=== PATIENT | female | born 1990 | race Hispanic/Latino ===

== ENCOUNTER 2022-12-05 12:05 | Inpatient (IN) | payer SELFPAY ==
[~2022-12-05 12:05] MED LIST: Heparin 10,000 UNITS/ 10 ML VIAL ONE
[2022-12-05 12:56] LABS: #Eosinphils 0.1 thou/uL (0.0-0.7); #Monocytes 0.5 thou/uL (0.11-0.59); #Neutrophils 6.5 thou/uL (1.40-6.50); %Basophils 0.4 % (0.0-1.0); %Eosinophils 1.5 % (0.0-10.0); %Lymphocytes 5.6 % (21.0-51.0); %Neutrophils 86.1 % (42.0-75.0); Hemoglobin 9.2 g/dL (12.0-16.0); Mean Corpuscular Hemoglobin 30.3 pg (27.0-31.0); Mean Corpuscular Volume 86.5 fl (78.0-98.0); Platelet Count 262 10x3/uL (130-400); RBC Distribution Width 14.6 % (11.5-14.5); Red Blood Cell (RBC) Count 3.04 mill/uL (4.20-5.40); White Blood Cell (WBC) Count 7.5 10x3/uL (4.8-10.8)
[2022-12-05 13:11] LABS: BHCG - Serum Negative (NEGATIVE); Pregs Control Background? CLEAR/WHITE (CLR/WHITE); Pregs Control Bar Appear? YES (CONTROL BAR)
[2022-12-05 13:23] LABS: ALT (SGPT) 10 U/L (8-55); AST (SGOT) 8 U/L (5-34); Albumin 4.4 g/dL (3.5-5.0); Alkaline Phosphatase 71 U/L (40-110); Anion Gap 45 mmol/L (10-20); Bilirubin, Total 0.6 mg/dL (0.2-1.2); Calcium 7.3 mg/dL (7.8-10.44); Carbon Dioxide 21 mmol/L (22-29); Chloride 74 mmol/L (98-107); Globulin 3.7 g/dL (2.4-3.5); Glucose 118 mg/dL (70-105); Potassium 4.4 mmol/L (3.5-5.1); Protein, Total 8.1 g/dL (6.0-8.3); Sodium 136 mmol/L (136-145)
[2022-12-05 13:34] LABS: BUN (Urea Nitrogen) 176 mg/dL (7.0-18.7)
[2022-12-05] MEDS ORDERED: Promethazine HCl 12.5 MG in Sodium Chloride 0.9% 50 ML IVPB SCH (13:45)
[2022-12-05 14:34] LABS: Free T4 (Free Thyroxine) 0.91 ng/dL (0.70-1.48)
[2022-12-05 14:55] LABS: Calc. Creatinine Clearance 0 mL/min (70-130)
[2022-12-05] MEDS ORDERED: Calcium Carbonate 500 MG ChewTAB PO PRN (15:59)
[2022-12-05] MEDS ORDERED: HYDROcodone/Acetaminophen 5/325 mg Tablet PO PRN (15:59)
[2022-12-05 17:47] LABS: HBSAB Concentration Less than 8.00 mIU/mL; HBSAg Index 0.18 S/CO (0-0.99); Hep B Core Total Ab Non-Reactive (NonReactive); Hep B Surf AB Non-Reactive (NonReactive); Hep B Surf Ag Non-Reactive S/CO (NonReactive); Hep C IgG Ab Non-Reactive S/CO (NonReactive); Hep C Index 0.12 S/CO (0-0.79)
[2022-12-05] MEDS: Ondansetron PF 4 MG/2 ML Vial IVP PRN (23:15)
[2022-12-05 23:39] VITALS: BMI 28.4
[2022-12-06 05:33] LABS: #Basophils 0.1 thou/uL (0.0-0.2); #Monocytes 0.6 thou/uL (0.11-0.59); #Neutrophils 6.6 thou/uL (1.40-6.50); %Basophils 0.5 % (0.0-1.0); %Eosinophils 10.5 % (0.0-10.0); %Lymphocytes 10.5 % (21.0-51.0); %Monocytes 6.4 % (0.0-10.0); %Neutrophils 71.9 % (42.0-75.0); Mean Corpuscular HGB CONC 33.6 g/dL (32.0-36.0); Mean Corpuscular Hemoglobin 29.7 pg (27.0-31.0); Mean Corpuscular Volume 88.4 fl (78.0-98.0); Mean Platelet Volume 11.4 fL (7.4-10.4); Platelet Count 238 10x3/uL (130-400); RBC Distribution Width 14.8 % (11.5-14.5); Red Blood Cell (RBC) Count 3.03 mill/uL (4.20-5.40); White Blood Cell (WBC) Count 9.2 10x3/uL (4.8-10.8)
[2022-12-06 06:06] LABS: ALT (SGPT) 10 U/L (8-55); AST (SGOT) 11 U/L (5-34); Albumin 4.3 g/dL (3.5-5.0); Alkaline Phosphatase 67 U/L (40-110); Anion Gap 35 mmol/L (10-20); BUN (Urea Nitrogen) 113 mg/dL (7.0-18.7); Bilirubin, Total 0.6 mg/dL (0.2-1.2); Calc. Creatinine Clearance 4 mL/min (70-130); Calcium 8.6 mg/dL (7.8-10.44); Carbon Dioxide 16 mmol/L (22-29); Chloride 89 mmol/L (98-107); Globulin 3.5 g/dL (2.4-3.5); Glucose 74 mg/dL (70-105); Potassium 3.4 mmol/L (3.5-5.1); Protein, Total 7.8 g/dL (6.0-8.3); Sodium 137 mmol/L (136-145)
[2022-12-06] MEDS: Sodium Bicarbonate Tab 325 MG TAB PO SCH ×3 (08:37→21:33)
[2022-12-06] MEDS: Lactated Ringer's 1,000 ML IV SCH ×2 (08:37→16:48)
[2022-12-06] MEDS: Ondansetron PF 4 MG/2 ML Vial IVP PRN (08:38)
[2022-12-06] MEDS ORDERED: NIFEdipine XL 60 MG TAB PO SCH (09:00)
[2022-12-06] MEDS ORDERED: Labetalol HCl 100 MG TAB PO SCH (09:00)
[2022-12-06] MEDS ORDERED: Heparin 10,000 UNITS/ 10 ML VIAL ONE (09:03)
[2022-12-06] MEDS ORDERED: Sodium Chloride 0.9% 1,000 ML IV SCH ×2 (10:45→16:00)
[2022-12-06] MEDS ORDERED: Lice Shampoo 120 ML BOT TOP SCH (13:45)
[2022-12-06] MEDS ORDERED: Sodium Chloride 0.9% 500 ML IVPB SCH (16:00)
[2022-12-07] MEDS ORDERED: Senokot S 8.6-50 MG TAB PO PRN (00:17)
[2022-12-07] MEDS: Lactated Ringer's 1,000 ML IV SCH ×3 (03:04→22:18)
[2022-12-07] MEDS: Ondansetron PF 4 MG/2 ML Vial IVP PRN ×2 (03:05→11:56)
[2022-12-07] MEDS: Sodium Bicarbonate Tab 325 MG TAB PO SCH ×3 (08:59→22:16)
[2022-12-07] MEDS ORDERED: Lice Shampoo 120 ML BOT TOP SCH (09:15)
[2022-12-07] MEDS ORDERED: Heparin 10,000 UNITS/ 10 ML VIAL ONE (11:04)
[2022-12-07] MEDS ORDERED: Carvedilol 6.25 MG TAB PO SCH (13:15)
[2022-12-07 14:25] LABS: Albumin 3.2 g/dL (3.5-5.0); Anion Gap 21 mmol/L (10-20); BUN (Urea Nitrogen) 39 mg/dL (7.0-18.7); Calc. Creatinine Clearance 5 mL/min (70-130); Calcium 8.2 mg/dL (7.8-10.44); Carbon Dioxide 21 mmol/L (22-29); Chloride 98 mmol/L (98-107); Estimated GFR 3; Glucose 86 mg/dL (70-105); Phosphorus 5.1 mg/dL (2.3-4.7); Potassium 3.4 mmol/L (3.5-5.1); Sodium 137 mmol/L (136-145)
[2022-12-07] MEDS ORDERED: Potassium Bicarbonate/Cit Ac 20 MEQ TAB PO SCH (16:15)
[2022-12-07] MEDS ORDERED: EPOETIN ALFA-EPBX (ESRD) 10,000 UNITS/ML VIAL SC SCH (17:00)
[2022-12-07] MEDS: Acetaminophen 325 MG TAB PO PRN (22:16)
[2022-12-07] MEDS: hydrALAZINE 20 MG/ML VIAL SLOW IVP PRN (22:17)
[2022-12-08 05:16] LABS: #Eosinphils 1.1 thou/uL (0.0-0.7); #Monocytes 0.7 thou/uL (0.11-0.59); %Basophils 0.3 % (0.0-1.0); %Eosinophils 15.8 % (0.0-10.0); %Lymphocytes 13.9 % (21.0-51.0); %Monocytes 10.7 % (0.0-10.0); %Neutrophils 58.7 % (42.0-75.0); Hemoglobin 7.7 g/dL (12.0-16.0); Mean Corpuscular HGB CONC 32.8 g/dL (32.0-36.0); Mean Corpuscular Hemoglobin 30.2 pg (27.0-31.0); Mean Corpuscular Volume 92.2 fl (78.0-98.0); Mean Platelet Volume 11.5 fL (7.4-10.4); Platelet Count 160 10x3/uL (130-400); RBC Distribution Width 14.6 % (11.5-14.5); Red Blood Cell (RBC) Count 2.55 mill/uL (4.20-5.40); White Blood Cell (WBC) Count 6.8 10x3/uL (4.8-10.8)
[2022-12-08 05:41] LABS: Iron 25 ug/dL (50-170); Iron Binding Capacity, Total 123 mcg/dL (265-497)
[2022-12-08 05:44] LABS: Albumin 3.1 g/dL (3.5-5.0); Anion Gap 17 mmol/L (10-20); BUN (Urea Nitrogen) 13 mg/dL (7.0-18.7); BUN/Creatinine Ratio 1.54; Calc. Creatinine Clearance 11 mL/min (70-130); Calcium 8.5 mg/dL (7.8-10.44); Carbon Dioxide 25 mmol/L (22-29); Chloride 101 mmol/L (98-107); Estimated GFR 6; Glucose 78 mg/dL (70-105); Phosphorus 2.9 mg/dL (2.3-4.7); Potassium 3.8 mmol/L (3.5-5.1); Sodium 139 mmol/L (136-145)
[2022-12-08] MEDS: Calcitriol 0.25 MCG CAP PO SCH (09:17)
[2022-12-08] MEDS: Sodium Bicarbonate Tab 325 MG TAB PO SCH ×3 (09:17→21:43)
[2022-12-08] MEDS: hydrALAZINE 20 MG/ML VIAL SLOW IVP PRN ×2 (09:32→21:42)
[2022-12-08] MEDS: Iron, Sodium Ferric Gluconate 250 MG in Sodium Chloride 0.9% 250 ML 250 ML IVPB SCH (13:29)
[2022-12-08] MEDS: Acetaminophen 325 MG TAB PO PRN (21:42)
[2022-12-09 05:52] LABS: Anion Gap 16 mmol/L (10-20); BUN (Urea Nitrogen) 19 mg/dL (7.0-18.7); BUN/Creatinine Ratio 1.75; Calc. Creatinine Clearance 9 mL/min (70-130); Calcium 7.9 mg/dL (7.8-10.44); Carbon Dioxide 25 mmol/L (22-29); Chloride 101 mmol/L (98-107); Estimated GFR 4; Glucose 82 mg/dL (70-105); Phosphorus 2.8 mg/dL (2.3-4.7); Potassium 3.6 mmol/L (3.5-5.1); Sodium 138 mmol/L (136-145)
[2022-12-09] MEDS: hydrALAZINE 20 MG/ML VIAL SLOW IVP PRN (06:41)
[2022-12-09] MEDS ORDERED: Bupivacaine HCl 0.5%/Epinephrine 1:200,000/PF 30 ml Vial ONE (06:58)
[2022-12-09] MEDS ORDERED: Lidocaine 2% PF 5 ML VIAL ONE (06:58)
[2022-12-09] MEDS ORDERED: Fentanyl 250 MCG/5 ML VIAL ONE (08:50)
[2022-12-09] MEDS ORDERED: Midazolam HCl 2 mg/2 ml Vial ONE (08:51)
[2022-12-09] MEDS ORDERED: SUGAMMADEX SODIUM 200 MG/2 ML VIAL ONE (08:51)
[2022-12-09] MEDS ORDERED: PROPOFOL 200 MG/20 ML VIAL ONE (08:57)
[2022-12-09] MEDS ORDERED: Ondansetron PF 4 MG/2 ML Vial ONE (08:57)
[2022-12-09] MEDS ORDERED: Dexamethasone 20 MG/5 ML VIAL ONE (08:57)
[2022-12-09] MEDS ORDERED: Rocuronium Bromide 10 MG/ML (10ML VIAL) ONE (08:57)
[2022-12-09] MEDS ORDERED: Promethazine HCl 25 MG/ML VIAL IM PRN (10:36)
[2022-12-09] MEDS ORDERED: Ondansetron HCl/PF 4 MG/2 ML Vial IVP PRN (10:36)
[2022-12-09] MEDS ORDERED: Heparin 10,000 UNITS/ 10 ML VIAL ONE (11:41)
[2022-12-09] MEDS: Sodium Bicarbonate Tab 325 MG TAB PO SCH ×2 (11:52→14:13)
[2022-12-09] MEDS: Calcitriol 0.25 MCG CAP PO SCH (12:00)
[2022-12-09] MEDS: Amlodipine 10 MG TAB PO SCH (12:01)
[2022-12-09] MEDS: Ondansetron PF 4 MG/2 ML Vial IVP PRN (12:04)
[2022-12-09] MEDS ORDERED: Morphine 4 MG/ML VIAL SLOW IVP SCH (12:45)
[2022-12-09] MEDS: Iron, Sodium Ferric Gluconate 250 MG in Sodium Chloride 0.9% 250 ML 250 ML IVPB SCH (14:25)
[2022-12-09 17:35] LABS: Albumin 3.3 g/dL (3.5-5.0); Anion Gap 18 mmol/L (10-20); BUN (Urea Nitrogen) 23 mg/dL (7.0-18.7); BUN/Creatinine Ratio 1.93; Calc. Creatinine Clearance 8 mL/min (70-130); Calcium 7.7 mg/dL (7.8-10.44); Carbon Dioxide 24 mmol/L (22-29); Chloride 99 mmol/L (98-107); Estimated GFR 4; Glucose 109 mg/dL (70-105); Phosphorus 3.6 mg/dL (2.3-4.7); Potassium 4.4 mmol/L (3.5-5.1); Sodium 137 mmol/L (136-145)
[2022-12-10] MEDS: Sodium Bicarbonate Tab 325 MG TAB PO SCH ×4 (00:06→21:47)
[2022-12-10] MEDS: hydrALAZINE 20 MG/ML VIAL SLOW IVP PRN (00:08)
[2022-12-10] MEDS: Amlodipine 10 MG TAB PO SCH (08:40)
[2022-12-10] MEDS: Calcitriol 0.25 MCG CAP PO SCH (08:40)
[2022-12-10] MEDS: Acetaminophen 325 MG TAB PO PRN (08:44)
[2022-12-10 09:09] LABS: #Eosinphils 0.5 thou/uL (0.0-0.7); #Monocytes 0.9 thou/uL (0.11-0.59); #Neutrophils 6.5 thou/uL (1.40-6.50); %Basophils 0.3 % (0.0-1.0); %Eosinophils 5.5 % (0.0-10.0); %Lymphocytes 13.9 % (21.0-51.0); %Monocytes 9.4 % (0.0-10.0); %Neutrophils 70.5 % (42.0-75.0); Hemoglobin 7.4 g/dL (12.0-16.0); Mean Corpuscular HGB CONC 31.5 g/dL (32.0-36.0); Mean Corpuscular Hemoglobin 30.3 pg (27.0-31.0); Mean Corpuscular Volume 96.3 fl (78.0-98.0); Mean Platelet Volume 11.5 fL (7.4-10.4); Platelet Count 190 10x3/uL (130-400); RBC Distribution Width 14.6 % (11.5-14.5); Red Blood Cell (RBC) Count 2.44 mill/uL (4.20-5.40); White Blood Cell (WBC) Count 9.2 10x3/uL (4.8-10.8)
[2022-12-10 11:06] LABS: Anion Gap 17 mmol/L (10-20); BUN (Urea Nitrogen) 9 mg/dL (7.0-18.7); BUN/Creatinine Ratio 1.48; Calc. Creatinine Clearance 15 mL/min (70-130); Calcium 7.7 mg/dL (7.8-10.44); Carbon Dioxide 25 mmol/L (22-29); Chloride 101 mmol/L (98-107); Estimated GFR 9; Glucose 70 mg/dL (70-105); Phosphorus 1.8 mg/dL (2.3-4.7); Potassium 3.8 mmol/L (3.5-5.1); Sodium 139 mmol/L (136-145)
[2022-12-10] MEDS: Iron, Sodium Ferric Gluconate 250 MG in Sodium Chloride 0.9% 250 ML 250 ML IVPB SCH (14:26)
[2022-12-11 08:02] LABS: #Eosinphils 1.2 thou/uL (0.0-0.7); #Monocytes 0.4 thou/uL (0.11-0.59); #Neutrophils 5.6 thou/uL (1.40-6.50); %Basophils 0.2 % (0.0-1.0); %Eosinophils 14.7 % (0.0-10.0); %Lymphocytes 11.6 % (21.0-51.0); %Monocytes 4.4 % (0.0-10.0); %Neutrophils 68.5 % (42.0-75.0); Hemoglobin 7.6 g/dL (12.0-16.0); Mean Corpuscular HGB CONC 32.1 g/dL (32.0-36.0); Mean Corpuscular Hemoglobin 30.4 pg (27.0-31.0); Mean Corpuscular Volume 94.8 fl (78.0-98.0); Platelet Count 193 10x3/uL (130-400); RBC Distribution Width 14.7 % (11.5-14.5); White Blood Cell (WBC) Count 8.2 10x3/uL (4.8-10.8)
[2022-12-11] MEDS: Amlodipine 10 MG TAB PO SCH (08:13)
[2022-12-11] MEDS: Sodium Bicarbonate Tab 325 MG TAB PO SCH ×3 (08:13→21:07)
[2022-12-11] MEDS: Calcitriol 0.25 MCG CAP PO SCH (08:13)
[2022-12-11 08:26] LABS: Anion Gap 14 mmol/L (10-20); BUN (Urea Nitrogen) 16 mg/dL (7.0-18.7); Calc. Creatinine Clearance 11 mL/min (70-130); Calcium 7.4 mg/dL (7.8-10.44); Carbon Dioxide 26 mmol/L (22-29); Chloride 101 mmol/L (98-107); Estimated GFR 6; Glucose 75 mg/dL (70-105); Potassium 3.8 mmol/L (3.5-5.1); Sodium 137 mmol/L (136-145)
[2022-12-11] MEDS: Iron, Sodium Ferric Gluconate 250 MG in Sodium Chloride 0.9% 250 ML 250 ML IVPB SCH (14:21)
[2022-12-11] MEDS: Acetaminophen 325 MG TAB PO PRN (21:07)
[2022-12-12 06:42] LABS: #Eosinphils 0.3 thou/uL (0.0-0.7); #Monocytes 0.5 thou/uL (0.11-0.59); #Neutrophils 5.8 thou/uL (1.40-6.50); %Basophils 0.1 % (0.0-1.0); %Eosinophils 4.2 % (0.0-10.0); %Lymphocytes 7.5 % (21.0-51.0); %Monocytes 7.1 % (0.0-10.0); %Neutrophils 80.5 % (42.0-75.0); Hemoglobin 6.8 g/dL (12.0-16.0); Mean Corpuscular HGB CONC 31.9 g/dL (32.0-36.0); Mean Corpuscular Hemoglobin 30.4 pg (27.0-31.0); Mean Corpuscular Volume 95.1 fl (78.0-98.0); Mean Platelet Volume 10.9 fL (7.4-10.4); Platelet Count 185 10x3/uL (130-400); RBC Distribution Width 14.9 % (11.5-14.5); Red Blood Cell (RBC) Count 2.24 mill/uL (4.20-5.40); White Blood Cell (WBC) Count 7.2 10x3/uL (4.8-10.8)
[2022-12-12 07:07] LABS: Albumin 2.8 g/dL (3.5-5.0); Anion Gap 16 mmol/L (10-20); BUN (Urea Nitrogen) 25 mg/dL (7.0-18.7); BUN/Creatinine Ratio 2.29; Calc. Creatinine Clearance 8 mL/min (70-130); Carbon Dioxide 23 mmol/L (22-29); Chloride 99 mmol/L (98-107); Estimated GFR 4; Glucose 84 mg/dL (70-105); Phosphorus 1.9 mg/dL (2.3-4.7); Potassium 3.7 mmol/L (3.5-5.1); Sodium 134 mmol/L (136-145)
[2022-12-12] MEDS ORDERED: Ergocalciferol 1.25 MG(50,000 UNITS) CAP PO SCH (09:00)
[2022-12-12] MEDS ORDERED: EPOETIN ALFA-EPBX (ESRD) 10,000 UNITS/ML VIAL SC SCH (09:00)
[2022-12-12] MEDS ORDERED: Heparin 10,000 UNITS/ 10 ML VIAL ONE (09:04)
[2022-12-12] MEDS: Calcitriol 0.25 MCG CAP PO SCH (09:44)
[2022-12-12] MEDS: Sodium Bicarbonate Tab 325 MG TAB PO SCH ×3 (09:44→19:51)
[2022-12-12] MEDS: NIFEdipine XL 60 MG TAB PO SCH (09:44)
[2022-12-13] MEDS: Calcitriol 0.25 MCG CAP PO SCH (07:42)
[2022-12-13] MEDS: NIFEdipine XL 60 MG TAB PO SCH (07:42)
[2022-12-13] MEDS: Sodium Bicarbonate Tab 325 MG TAB PO SCH ×3 (07:42→20:53)
[2022-12-13] MEDS ORDERED: Magnevist 469MG/ML 20 ML VIAL ONE (08:54)
[2022-12-13 09:06] LABS: #Eosinphils 0.5 thou/uL (0.0-0.7); #Monocytes 0.6 thou/uL (0.11-0.59); #Neutrophils 4.3 thou/uL (1.40-6.50); %Basophils 0.3 % (0.0-1.0); %Eosinophils 8.1 % (0.0-10.0); %Lymphocytes 17.1 % (21.0-51.0); %Monocytes 9.6 % (0.0-10.0); %Neutrophils 64.6 % (42.0-75.0); Hemoglobin 8.1 g/dL (12.0-16.0); Mean Corpuscular Hemoglobin 30.3 pg (27.0-31.0); Mean Corpuscular Volume 94.8 fl (78.0-98.0); Mean Platelet Volume 9.6 fL (7.4-10.4); Platelet Count 184 10x3/uL (130-400); RBC Distribution Width 15.1 % (11.5-14.5); Red Blood Cell (RBC) Count 2.67 mill/uL (4.20-5.40); White Blood Cell (WBC) Count 6.7 10x3/uL (4.8-10.8)
[2022-12-13] MEDS ORDERED: Heparin 10,000 UNITS/ 10 ML VIAL ONE (09:08)
[2022-12-13 09:34] LABS: Albumin 3.3 g/dL (3.5-5.0); Anion Gap 15 mmol/L (10-20); BUN (Urea Nitrogen) 16 mg/dL (7.0-18.7); BUN/Creatinine Ratio 2.27; Calc. Creatinine Clearance 13 mL/min (70-130); Calcium 8.7 mg/dL (7.8-10.44); Carbon Dioxide 26 mmol/L (22-29); Chloride 98 mmol/L (98-107); Estimated GFR 7; Glucose 90 mg/dL (70-105); Phosphorus 2.5 mg/dL (2.3-4.7); Potassium 3.6 mmol/L (3.5-5.1); Sodium 135 mmol/L (136-145)
[2022-12-13] MEDS ORDERED: Losartan 25 MG TAB PO SCH (10:45)
[2022-12-14 06:32] LABS: #Eosinphils 0.6 thou/uL (0.0-0.7); #Monocytes 0.8 thou/uL (0.11-0.59); #Neutrophils 4.6 thou/uL (1.40-6.50); %Basophils 0.1 % (0.0-1.0); %Eosinophils 7.9 % (0.0-10.0); %Monocytes 11.6 % (0.0-10.0); %Neutrophils 63.1 % (42.0-75.0); Hemoglobin 6.8 g/dL (12.0-16.0); Mean Corpuscular HGB CONC 31.9 g/dL (32.0-36.0); Mean Corpuscular Hemoglobin 30.5 pg (27.0-31.0); Mean Corpuscular Volume 95.5 fl (78.0-98.0); Mean Platelet Volume 10.1 fL (7.4-10.4); Platelet Count 157 10x3/uL (130-400); RBC Distribution Width 15.2 % (11.5-14.5); Red Blood Cell (RBC) Count 2.23 mill/uL (4.20-5.40); White Blood Cell (WBC) Count 7.2 10x3/uL (4.8-10.8)
[2022-12-14 07:39] LABS: Hemoglobin 6.9 g/dL (12.0-16.0)
[2022-12-14] MEDS ORDERED: Heparin 10,000 UNITS/ 10 ML VIAL ONE (08:21)
[2022-12-14] MEDS: Calcitriol 0.25 MCG CAP PO SCH (08:29)
[2022-12-14] MEDS: NIFEdipine XL 60 MG TAB PO SCH (08:29)
[2022-12-14] MEDS: Sodium Bicarbonate Tab 325 MG TAB PO SCH ×2 (08:29→14:28)
[2022-12-14 08:45] LABS: Anion Gap 12 mmol/L (10-20); BUN (Urea Nitrogen) 15 mg/dL (7.0-18.7); Calc. Creatinine Clearance 17 mL/min (70-130); Calcium 8.2 mg/dL (7.8-10.44); Carbon Dioxide 27 mmol/L (22-29); Chloride 100 mmol/L (98-107); Estimated GFR 10; Glucose 77 mg/dL (70-105); Phosphorus 1.6 mg/dL (2.3-4.7); Potassium 3.8 mmol/L (3.5-5.1); Sodium 135 mmol/L (136-145)
[2022-12-14] MEDS ORDERED: Iron, Sodium Ferric Gluconate 250 MG in Sodium Chloride 0.9% 250 ML 250 ML IVPB SCH (16:00)
[2022-12-14] MEDS: hydrALAZINE 20 MG/ML VIAL SLOW IVP PRN (16:46)
[2022-12-15] MEDS: Acetaminophen 325 MG TAB PO PRN ×2 (01:10→08:58)
[2022-12-15] MEDS: hydrALAZINE 20 MG/ML VIAL SLOW IVP PRN (01:13)
[2022-12-15 06:28] LABS: #Eosinphils 0.5 thou/uL (0.0-0.7); #Neutrophils 4.3 thou/uL (1.40-6.50); %Basophils 0.1 % (0.0-1.0); %Eosinophils 7.7 % (0.0-10.0); %Lymphocytes 17.2 % (21.0-51.0); %Monocytes 13.8 % (0.0-10.0); %Neutrophils 60.6 % (42.0-75.0); Hemoglobin 8.6 g/dL (12.0-16.0); Mean Corpuscular Volume 90.9 fl (78.0-98.0); Mean Platelet Volume 9.8 fL (7.4-10.4); Platelet Count 127 10x3/uL (130-400); Red Blood Cell (RBC) Count 2.87 mill/uL (4.20-5.40)
[2022-12-15] MEDS: NIFEdipine XL 60 MG TAB PO SCH (08:58)
[2022-12-15] MEDS: Calcitriol 0.25 MCG CAP PO SCH (08:58)
[2022-12-15] MEDS: hydrALAZINE 25 MG TAB PO SCH ×2 (14:36→20:23)
[2022-12-16 06:39] LABS: #Eosinphils 0.6 thou/uL (0.0-0.7); #Monocytes 0.8 thou/uL (0.11-0.59); #Neutrophils 4.7 thou/uL (1.40-6.50); %Basophils 0.3 % (0.0-1.0); %Eosinophils 8.2 % (0.0-10.0); %Lymphocytes 18.6 % (21.0-51.0); %Neutrophils 62.5 % (42.0-75.0); Hemoglobin 8.9 g/dL (12.0-16.0); Mean Corpuscular HGB CONC 32.5 g/dL (32.0-36.0); Mean Corpuscular Volume 92.3 fl (78.0-98.0); Mean Platelet Volume 9.3 fL (7.4-10.4); Platelet Count 124 10x3/uL (130-400); RBC Distribution Width 16.2 % (11.5-14.5); Red Blood Cell (RBC) Count 2.97 mill/uL (4.20-5.40); White Blood Cell (WBC) Count 7.6 10x3/uL (4.8-10.8)
[2022-12-16] MEDS ORDERED: Heparin 10,000 UNITS/ 10 ML VIAL ONE (10:54)
[2022-12-16] MEDS: Calcitriol 0.25 MCG CAP PO SCH (11:10)
[2022-12-16] MEDS: Metoprolol Tartrate 100 MG TAB PO SCH ×2 (11:10→21:25)
[2022-12-16] MEDS: NIFEdipine XL 60 MG TAB PO SCH ×2 (11:10→21:25)
[2022-12-17 07:33] LABS: #Eosinphils 0.7 thou/uL (0.0-0.7); #Monocytes 0.6 thou/uL (0.11-0.59); #Neutrophils 4.4 thou/uL (1.40-6.50); %Basophils 0.6 % (0.0-1.0); %Eosinophils 9.9 % (0.0-10.0); %Monocytes 8.2 % (0.0-10.0); Hemoglobin 8.8 g/dL (12.0-16.0); Mean Corpuscular HGB CONC 32.4 g/dL (32.0-36.0); Mean Corpuscular Hemoglobin 29.5 pg (27.0-31.0); Mean Corpuscular Volume 91.3 fl (78.0-98.0); Mean Platelet Volume 9.5 fL (7.4-10.4); RBC Distribution Width 15.9 % (11.5-14.5); Red Blood Cell (RBC) Count 2.98 mill/uL (4.20-5.40); White Blood Cell (WBC) Count 7.1 10x3/uL (4.8-10.8)
[2022-12-17 07:40] LABS: Platelet Count 116 10x3/uL (130-400)
[2022-12-17] MEDS: NIFEdipine XL 60 MG TAB PO SCH ×2 (09:21→20:20)
[2022-12-17] MEDS: Calcitriol 0.25 MCG CAP PO SCH (09:21)
[2022-12-17] MEDS: Metoprolol Tartrate 100 MG TAB PO SCH ×2 (09:21→20:20)
[2022-12-18 07:37] VITALS: TEMP 98.3
[2022-12-18 07:59] LABS: #Monocytes 0.5 thou/uL (0.11-0.59); #Neutrophils 4.8 thou/uL (1.40-6.50); %Basophils 0.4 % (0.0-1.0); %Eosinophils 12.5 % (0.0-10.0); %Lymphocytes 17.8 % (21.0-51.0); %Monocytes 6.7 % (0.0-10.0); %Neutrophils 62.3 % (42.0-75.0); Hemoglobin 9.2 g/dL (12.0-16.0); Mean Corpuscular HGB CONC 32.1 g/dL (32.0-36.0); Mean Corpuscular Hemoglobin 29.9 pg (27.0-31.0); Mean Corpuscular Volume 93.2 fl (78.0-98.0); Mean Platelet Volume 9.1 fL (7.4-10.4); Platelet Count 130 10x3/uL (130-400); RBC Distribution Width 15.7 % (11.5-14.5); Red Blood Cell (RBC) Count 3.08 mill/uL (4.20-5.40); White Blood Cell (WBC) Count 7.6 10x3/uL (4.8-10.8)
[2022-12-18 08:19] LABS: Albumin 3.3 g/dL (3.5-5.0); Anion Gap 15 mmol/L (10-20); BUN (Urea Nitrogen) 23 mg/dL (7.0-18.7); BUN/Creatinine Ratio 2.96; Calc. Creatinine Clearance 12 mL/min (70-130); Calcium 8.4 mg/dL (7.8-10.44); Carbon Dioxide 25 mmol/L (22-29); Chloride 100 mmol/L (98-107); Estimated GFR 7; Glucose 89 mg/dL (70-105); Potassium 3.8 mmol/L (3.5-5.1); Sodium 136 mmol/L (136-145)
[2022-12-18] MEDS: Metoprolol Tartrate 100 MG TAB PO SCH ×2 (09:02→21:35)
[2022-12-18] MEDS: NIFEdipine XL 60 MG TAB PO SCH ×2 (09:02→21:35)
[2022-12-18] MEDS: Calcitriol 0.25 MCG CAP PO SCH (09:02)
[2022-12-18 21:41] VITALS: BP 135/88
== END 2022-12-18 21:24 | disposition home or self-care (01) | DRG 699 ==
LOC: ERS 12:05 → NEURO 15:59 → T4-B 12-09 23:24
PROVIDERS: ADMIT Family Medicine; ATTEND Family Medicine
PROC: 06HY33Z Insertion of Infusion Device into Lower Vein, Percutaneous Approach (ICD-10-PCS; principal; 2022-12-05)
PROC: 5A1D70Z Performance of Urinary Filtration, Intermittent, Less than 6 Hours Per Day (ICD-10-PCS; 2022-12-05)
PROC: 5A1D70Z Performance of Urinary Filtration, Intermittent, Less than 6 Hours Per Day (ICD-10-PCS; 2022-12-06)
PROC: 5A1D70Z Performance of Urinary Filtration, Intermittent, Less than 6 Hours Per Day (ICD-10-PCS; 2022-12-07)
PROC: 0JH63XZ Insertion of Tunneled Vascular Access Device into Chest Subcutaneous Tissue and Fascia, Percutaneous Approach (ICD-10-PCS; 2022-12-09)
PROC: 02HV33Z Insertion of Infusion Device into Superior Vena Cava, Percutaneous Approach (ICD-10-PCS; 2022-12-09)
PROC: B5181ZA Fluoroscopy of Superior Vena Cava using Low Osmolar Contrast, Guidance (ICD-10-PCS; 2022-12-09)
PROC: 5A1D70Z Performance of Urinary Filtration, Intermittent, Less than 6 Hours Per Day (ICD-10-PCS; 2022-12-09)
PROC: 5A1D70Z Performance of Urinary Filtration, Intermittent, Less than 6 Hours Per Day (ICD-10-PCS; 2022-12-12)
PROC: 5A1D70Z Performance of Urinary Filtration, Intermittent, Less than 6 Hours Per Day (ICD-10-PCS; 2022-12-13)
PROC: 30233N1 Transfusion of Nonautologous Red Blood Cells into Peripheral Vein, Percutaneous Approach (ICD-10-PCS; 2022-12-14)
PROC: 5A1D70Z Performance of Urinary Filtration, Intermittent, Less than 6 Hours Per Day (ICD-10-PCS; 2022-12-14)
PROC: 5A1D70Z Performance of Urinary Filtration, Intermittent, Less than 6 Hours Per Day (ICD-10-PCS; 2022-12-16)
PROC: 5A1D70Z Performance of Urinary Filtration, Intermittent, Less than 6 Hours Per Day (ICD-10-PCS; 2022-12-18)
DX: N02.8 Recurrent and persistent hematuria with other morphologic changes (principal); E87.20 Acidosis, unspecified; G93.49 Other encephalopathy; N17.9 Acute kidney failure, unspecified; N18.6 End stage renal disease; R56.9 Unspecified convulsions; D63.1 Anemia in chronic kidney disease; N25.81 Secondary hyperparathyroidism of renal origin; E55.9 Vitamin D deficiency, unspecified; E86.9 Volume depletion, unspecified; B85.0 Pediculosis due to Pediculus humanus capitis; I95.9 Hypotension, unspecified; E87.6 Hypokalemia; I15.9 Secondary hypertension, unspecified; D69.6 Thrombocytopenia, unspecified
CPT/HCPCS: 36415; 36416; 36430; 36556; 70450; 70551; 70553; 71045; 80048; 80053; 80069; 82306; 82728; 83540; 83550; 83735; 83970; 84100; 84146; 84439; 84443; 84481; 84703; 85025; 86704; 86850; 86900; 86901; 87070; 87205; 90935; 93005; 94760; 96365; A9579; C1752; G0257; J0360; J1100; J1642; J1644; J2001; J2250; J2270; J2405; J2550; J2704; J2916; J3010; J7030; J7050; J7120; P9016; Q5105

== ENCOUNTER 2023-06-01 09:00 | Emergency (ER) | payer MEDICAID, SELFPAY ==
[2023-06-01 09:33] LABS: #Eosinphils 0.4 thou/uL (0.0-0.7); #Monocytes 0.4 thou/uL (0.11-0.59); #Neutrophils 5.1 thou/uL (1.40-6.50); %Basophils 0.5 % (0.0-1.0); %Eosinophils 5.7 % (0.0-10.0); %Monocytes 5.5 % (0.0-10.0); %Neutrophils 67.2 % (42.0-75.0); Hematocrit 19.5 % (36.0-47.0); Hemoglobin 6.6 g/dL (12.0-16.0); Mean Corpuscular HGB CONC 33.8 g/dL (32.0-36.0); Mean Corpuscular Hemoglobin 33.7 pg (27.0-31.0); Mean Corpuscular Volume 99.5 fl (78.0-98.0); Mean Platelet Volume 11.3 fL (7.4-10.4); Platelet Count 174 10x3/uL (130-400); RBC Distribution Width 13.8 % (11.5-14.5); Red Blood Cell (RBC) Count 1.96 mill/uL (4.20-5.40); White Blood Cell (WBC) Count 7.6 10x3/uL (4.8-10.8)
[2023-06-01 09:57] LABS: ALT (SGPT) 10 U/L (8-55); AST (SGOT) 14 U/L (5-34); Albumin 4.5 g/dL (3.5-5.0); Alkaline Phosphatase 70 U/L (40-110); Anion Gap 16 mmol/L (10-20); BUN (Urea Nitrogen) 20 mg/dL (7.0-18.7); Bilirubin, Total 0.6 mg/dL (0.2-1.2); Calc. Creatinine Clearance 0 mL/min (70-130); Calcium 9.3 mg/dL (7.8-10.44); Carbon Dioxide 31 mmol/L (22-29); Chloride 96 mmol/L (98-107); Estimated GFR 6; Globulin 3.2 g/dL (2.4-3.5); Glucose 102 mg/dL (70-105); Potassium 3.3 mmol/L (3.5-5.1); Protein, Total 7.7 g/dL (6.0-8.3); Sodium 140 mmol/L (136-145)
== END 2023-06-01 14:07 | disposition home or self-care (01) ==
LOC: ERS 09:00
DX: D64.9 Anemia, unspecified (principal); I12.0 Hypertensive chronic kidney disease with stage 5 chronic kidney disease or end stage renal disease; N18.6 End stage renal disease; G40.909 Epilepsy, unspecified, not intractable, without status epilepticus; Z79.899 Other long term (current) drug therapy
CPT/HCPCS: 36430; 80053; 85025; 86850; 86900; 86901; 99284; P9016